=== PATIENT | female | born 1990 | race Asian ===

== ENCOUNTER 2017-01-30 19:28 | Outpatient (CLI) | payer OTHER | END 2017-01-30 20:36 | disposition home or self-care (01) | LOC: MLB 19:28 | PROVIDERS: ATTEND Obstetrics & Gynecology | DX: Z34.90 Encounter for supervision of normal pregnancy, unspecified, unspecified trimester (principal) | CPT/HCPCS: 36415; 84443 ==

== ENCOUNTER 2017-08-28 11:58 | Emergency (ER) | payer OTHER ==
[~2017-08-28] VITALS: Ht 154.9 cm; Wt 67.6 kg
[2017-08-28 12:15] VITALS: BP 117/83
[2017-08-28 13:40] VITALS: BP 117/83
--- NOTE | 2017-08-28 13:41 | NUR ---
Patient discharged with v/s stable. Written and verbal after care instructions given and explained. Patient alert, oriented and verbalized understanding of instructions. Ambulatory with steady gait. All questions addressed prior to discharge. ID band removed. Patient advised to follow up with PMD. Rx of ACYCLOVIR given. Patient educated on indication of medication including possible reaction and side effects. Opportunity to ask questions provided and answered.
== END 2017-08-28 13:41 | disposition home or self-care (01) ==
LOC: MED 11:58
DX: R23.8 Other skin changes (principal)
CPT/HCPCS: 99283

== ENCOUNTER 2018-08-27 07:41 | Emergency (ER) | payer OTHER ==
[~2018-08-27] VITALS: Ht 154.9 cm; Wt 79.4 kg
[2018-08-27 07:48] VITALS: BP 122/72
--- NOTE | 2018-08-27 07:52 | NUR ---
PT. ARRIVED TO THE ED W/ C/O RIGHT EAR PAIN X 1 DAY. COUGH X 1 WEEK, NASAL CONGESTION X 1 WEEK. UPON INSPECTION RIGHT EAR IS DRAINING AND DRIED BLOOD APPARENT IN CANAL. PAIN 8/10 THROBBING PAIN IN RT EAR DENIES FEVERS, N/V/D. C/O DIZZYNESS. LS: CLEAR THROUGHOUT. ER MD MADE AWARE. SAFETY PRECAUTIONS IMPLEMENTED. WILL CONTINUE TO MONITOR.
--- NOTE | 2018-08-27 07:53 | NUR ---
pt ambulated to er bed 11
--- NOTE | 2018-08-27 07:57 | NUR ---
RESIDENT AT BEDSIDE, EVALUATING PATIENT AT THIS TIME.
[2018-08-27 08:28] VITALS: BP 120/70
--- NOTE | 2018-08-27 08:28 | NUR ---
Patient discharged with v/s stable. Written and verbal after care instructions given and explained. Patient alert, oriented and verbalized understanding of instructions. Ambulatory with steady gait. All questions addressed prior to discharge. ID band removed. Patient advised to follow up with PMD 2-3 DAYS . Rx of AMOXICILLIN 500MG given. Patient educated on indication of medication including possible reaction and side effects. Opportunity to ask questions provided and answered.
== END 2018-08-27 08:28 | disposition home or self-care (01) ==
LOC: MED 07:41
DX: H66.91 Otitis media, unspecified, right ear (principal); H72.91 Unspecified perforation of tympanic membrane, right ear; B34.9 Viral infection, unspecified; E03.9 Hypothyroidism, unspecified
CPT/HCPCS: 99283

== ENCOUNTER 2020-04-11 10:46 | Outpatient (CLI) | payer OTHER ==
[2020-04-11 11:35] LABS: BASOPHILS # (AUTO) 0.1 K/uL (0.00-0.22); BASOPHILS % (AUTO) 0.6 % (0.0-2.0); EOSINOPHILS # (AUTO) 0.5 K/uL (0-0.4); EOSINOPHILS % (AUTO) 3.9 % (0.0-4.0); HEMATOCRIT 42.3 % (36-48); HEMOGLOBIN 14.3 g/dL (12.0-16.0); LYMPHOCYTES % (AUTO) 21.8 % (20.5-51.1); MEAN CORPUSCULAR HEMOGLOBIN 27 pg (27-31); MEAN CORPUSCULAR HGB CONC 34 g/dL (33-37); MEAN CORPUSCULAR VOLUME 79.2 fL (80-94); MONOCYTES # (AUTO) 0.6 K/uL (0.8-1.0); MONOCYTES % (AUTO) 4.7 % (1.7-9.3); NEUTROPHILS # (AUTO) 9.4 K/uL (1.8-7.7); PLATELET COUNT (AUTO) 340 K/uL (140-450); RED BLOOD CELL COUNT(AUTO) 5.34 MIL/uL (4.20-5.40); RED CELL DISTRIBUTION WIDTH 13.8 % (11.6-13.7); WHITE BLOOD COUNT (AUTO) 13.6 K/uL (4.8-10.8)
[2020-04-11 11:40] LABS: APPEARANCE,URINE CLEAR (CLEAR); BILIRUBIN,URINE NEGATIVE (NEGATIVE); BLOOD, URINE TRACE-I (NEGATIVE); COLOR,URINE YELLOW (YELLOW); LEUKOCYTE ESTERASE ,URINE NEGATIVE (NEGATIVE); NITRITE, URINE NEGATIVE (NEGATIVE); PH,URINE 5.5 (5.0-9.0); UGLUCOSE NEGATIVE (NEGATIVE)
[2020-04-11 11:44] LABS: RBC,URINE 0-5 /HPF (0-5); WBC,URINE 0-5 /HPF (0-5)
[2020-04-11 13:00] LABS: ALBUMIN 3.9 g/dL (3.4-5.0); ANION GAP 10.5 (8-16); CARBON DIOXIDE 28.8 mmol/L (21-32); CHOL/HDL RATIO 5.6 (1-4.5); CREATININE 0.9 mg/dL (0.6-1.3); POTASSIUM 4.3 mmol/L (3.5-5.1); THYROID STIMULATING HORMONE 1.46 uIU/mL (0.34-3.74); TOTAL BILIRUBIN 0.3 mg/dL (0.0-1.0)
[2020-04-12 08:08] LABS: ESTRADIOL SERUM 64.7 pg/mL (.); FOLLICLE STIMULATING HORMONE 4.6 mIU/mL (.); LUTEINIZING HORMONE 13.2 mIU/mL (.); PROLACTIN 8.5 ng/mL (4.8-23.3); T4 (THYROXINE) 7.9 ug/dL (4.5-12.0)
== END 2020-04-11 20:30 | disposition home or self-care (01) ==
LOC: MLB 10:46
PROVIDERS: ATTEND Preventive Medicine Preventive Medicine/Occupational Environmental Medicine
DX: Z00.01 Encounter for general adult medical examination with abnormal findings (principal); N60.01 Solitary cyst of right breast; N20.0 Calculus of kidney; N63.20 Unspecified lump in the left breast, unspecified quadrant
CPT/HCPCS: 36415; 80053; 81001; 82306; 82670; 83001; 83002; 83036; 84144; 84146; 84436; 84443; 85025

== ENCOUNTER 2020-06-15 16:36 | Emergency (ER) | payer OTHER ==
--- NOTE | 2020-06-15 17:23 | NUR ---
PATIENT LEFT WITHOUT BEING SEEN BY DR. Olmos. NO FURTHER CARE PROVIDED FOR PATIENT.
== END 2020-06-15 17:23 | disposition left against medical advice (07) ==
LOC: MED 16:36
DX: Z53.21 Procedure and treatment not carried out due to patient leaving prior to being seen by health care provider (principal)

== ENCOUNTER 2020-06-16 11:58 | Inpatient (IN) | payer OTHER, SELFPAY ==
[~2020-06-16] VITALS: Ht 154.9 cm; Wt 83.0 kg
[2020-06-16 12:01] VITALS: BP 126/91
--- NOTE | 2020-06-16 12:03 | NUR ---
PT TAKEN TO BED 11.
--- NOTE | 2020-06-16 12:05 | NUR ---
Pt ambulated to ER bed 11 with a steady gait.
--- NOTE | 2020-06-16 12:08 | NUR ---
30 Y/O FEMALE C/O LEFT BREAST ABCESS PAIN 09/30 DESCRIBES BURNING INTERMITTENT WORSE WITH PALPATION X1DAY. PT DENIES FEVER/CHILLS, N/V/D. PT STATES ON 05/25/20 ON SX, 06/[address] BURGOS TO FOLLOW-UP FOR U/S TO R/O A NEW FORMING ABSESS. PMH- HYPOTHYROIDISM RX: METFORMIN, , AND LEVOTHYROXINE. NKA
[2020-06-16] MEDS ORDERED: NACL 0.9% 1,000 ML IV ONE (12:20)
--- NOTE | 2020-06-16 12:27 | NUR ---
Preformed SUZE ZAVALETA, GAVE TO GRANULATING MACHINE OPERATOR.
--- NOTE | 2020-06-16 12:56 | NUR ---
Ultrasound at bedside.
[2020-06-16 13:11] LABS: BASOPHILS % (AUTO) 0.3 % (0.0-2.0); EOSINOPHILS # (AUTO) 0.4 K/uL (0-0.4); EOSINOPHILS % (AUTO) 3.9 % (0.0-4.0); HEMATOCRIT 40.1 % (36-48); HEMOGLOBIN 13.4 g/dL (12.0-16.0); LYMPHOCYTES # (AUTO) 2.8 K/uL (2.5-16.5); LYMPHOCYTES % (AUTO) 26.8 % (20.5-51.1); MEAN CORPUSCULAR HEMOGLOBIN 27 pg (27-31); MEAN CORPUSCULAR HGB CONC 33 g/dL (33-37); MEAN CORPUSCULAR VOLUME 79.5 fL (80-94); MONOCYTES # (AUTO) 0.6 K/uL (0.8-1.0); MONOCYTES % (AUTO) 5.9 % (1.7-9.3); NEUTROPHILS # (AUTO) 6.5 K/uL (1.8-7.7); NEUTROPHILS % (AUTO) 63.1 % (42.2-75.2); PLATELET COUNT (AUTO) 316 K/uL (140-450); RED BLOOD CELL COUNT(AUTO) 5.05 MIL/uL (4.20-5.40); RED CELL DISTRIBUTION WIDTH 14.1 % (11.6-13.7); WHITE BLOOD COUNT (AUTO) 10.4 K/uL (4.8-10.8)
[2020-06-16 13:35] LABS: ALBUMIN 4.1 g/dL (3.4-5.0); ANION GAP 16.3 (8-16); CARBON DIOXIDE 25.5 mmol/L (21-32); CREATININE 0.8 mg/dL (0.6-1.3); POTASSIUM 3.8 mmol/L (3.5-5.1); TOTAL BILIRUBIN 0.3 mg/dL (0.0-1.0)
[2020-06-16] MEDS ORDERED: PIPERACILLIN/TAZOBACTAM 3.375 GM in DEXTROSE 5% 50 ML IV ONE (14:05)
[2020-06-16] MEDS ORDERED: PIPERACILLIN/TAZOBACTAM 3.375 GM VIAL IV ONE (14:14)
--- NOTE | 2020-06-16 14:49 | NUR ---
Pt states her throat feels "itchy". Dr. Munoz made aware.
[2020-06-16] MEDS ORDERED: diphenhydrAMINE 50 MG/ML VIAL IVP ONE (15:00)
--- NOTE | 2020-06-16 16:17 | NUR ---
PT KEPT NPO. LAST ORAL INTAKE WAS AT 1100 THIS AM.
--- NOTE | 2020-06-16 16:40 | NUR ---
Gave report tp Bubba Bird for pending admission in 104B. ETA 10minutes
--- NOTE | 2020-06-16 16:55 | NUR ---
Patient will be admitted to care of Zain Roberts MD. Admited to [facility]. Will go to room 104B. Belongings list completed. Report to Bubba RAHMAN.
[2020-06-16 17:05] VITALS: BP 127/77
--- NOTE | 2020-06-16 17:05 | NUR ---
RECEIVED PATIENT FROM ED NURSE, QUITA VIA WHEELCHAIR. PATIENT AWAKE, ALERT, AND ORIENTED X4. RESP EVEN AND UNLABORED ON ROOM AIR. C/O PAIN TO LEFT BREAST 3/10 AND TOLERABLE, NOT REQUESTING ANY PAIN MEDICATION. DX. LEFT BREAST ABSCESS. PATIENT HAD A RECENT I/D TO LEFT BREAST ABSCESS AT THE BEGINNING OF MAY [address] BURGOS. OPEN WOUND ON LEFT MEDIAL BREAST PACKED AND COVERED WITH ISLAND DRESSING. LUNGS CLEAR. SKIN DRY AND WARM TO TOUCH AND INTACT. BOWEL SOUNDS PRESENT IN ALL QUADRANTS. PATIENT ABLE TO AMBULATE WITH STEADY GAIT. RH 20G INTACT AND PATENT WITH NS 100ML/HR. MRSA COLLECTED AND SENT TO LAB. PATIENT ABLE TO MAKE NEEDS KNOWN AND FOLLOW COMMANDS. HOME MEDICATIONS IN TELE MED ROOM IN PATIENT CASETTE. CALL LIGHT WITHIN REACH. WILL CONTINUE TO MONITOR.
[2020-06-16] MEDS ORDERED: HYDROcodone/APAP 5/325 MG 1 TAB TAB PO PRN (17:20)
[2020-06-16] MEDS ORDERED: ONDANSETRON 4 MG/2 ML VIAL IVP PRN ×2 (17:20→23:45)
[2020-06-16] MEDS ORDERED: ACETAMINOPHEN 325 MG TAB PO PRN (17:20)
[2020-06-16] MEDS ORDERED: LORazepam 2 MG/ML VIAL IVP PRN (17:20)
[2020-06-16] MEDS: DEXT 5% / NACL 0.45% 1,000 ML IV SCH (19:26)
--- NOTE | 2020-06-16 19:30 | NUR ---
PATIENT IS NPO AT THIS TIME. PATIENT VERBALIZED UNDERSTANDING. ENDORSED PATIENT TO NIGHT NURSE. PATIENT IN STABLE CONDITION.
--- NOTE | 2020-06-16 19:30 | NUR ---
REVIEWED PLAN OF CARE WITH SAGAR URBANO AND BOTH AGREED. RECEIVED PT A/A/OX4, LAYING IN BED WATCHING TV. NOT IN ANY DISTRESS AND NO COMPLAIN AT THIS TIME.IVF INFUSING ORDERED.CALL LIGHT WITHIN REACH. WILL CONTINUE POC AND MONITORING.
--- NOTE | 2020-06-16 19:30 | NUR ---
RECD. RESTING IN BED, AWAKE, A/OX4. IV OF D5 0.45 NS INFUSING AT 100 ML/HR, RIGHT HAND G 20. ABLE TO AMBULATE BY HERSELF. PLEASANT AND COOPERATIVE. DENIES PAIN 0/10 AT THIS TIME. NPO,
[2020-06-16 20:00] VITALS: BP 102/68
[2020-06-16] MEDS: PIPERACILLIN/TAZOBACTAM 3.375 GM in DEXTROSE 5% 50 ML IV SCH (20:40)
--- NOTE | 2020-06-16 22:10 | NUR ---
DR. BURGOS CALLED, WILL DO I & D OF LEFT BREAST TONIGHT.
--- NOTE | 2020-06-16 22:45 | NUR ---
TAKEN TO OR VIA BED FOR I & D OF LEFT BREAST.
[2020-06-16] MEDS ORDERED: BUPIVACAINE-MPF 0.25% 30 ML VIAL INJ ONE (23:03)
[2020-06-16] MEDS ORDERED: LIDOCAINE 1% 500 MG/50 ML VIAL ONE (23:03)
[2020-06-16] MEDS ORDERED: DEXAMETHASONE 4 MG/ML VIAL ONE (23:05)
[2020-06-16] MEDS ORDERED: MEPERIDINE 25 MG/ML SYR ONE (23:05)
[2020-06-16] MEDS ORDERED: ONDANSETRON 4 MG/2 ML VIAL ONE (23:05)
[2020-06-16] MEDS ORDERED: KETOROLAC 30 MG/ML VIAL ONE (23:05)
[2020-06-16] MEDS ORDERED: SEVOFLURANE 250 ML BTL INH ONE (23:05)
[2020-06-16] MEDS ORDERED: fentaNYL citrate 0.05 MG/ML VIAL ONE (23:05)
[2020-06-16] MEDS ORDERED: MIDAZOLAM 2 MG/2 ML VIAL ONE (23:05)
[2020-06-16] MEDS ORDERED: PROPOFOL 200 MG/20 ML VIAL IV ONE (23:05)
[2020-06-16] MEDS ORDERED: BLOOD GLUCOSE MONITORING 1 DEV DEV FS SCH (23:45)
[2020-06-16] MEDS ORDERED: HYDROmorphone 1 MG/ML AMP IVP PRN (23:45)
[2020-06-16] MEDS ORDERED: MEPERIDINE 25 MG/ML SYR IVP PRN (23:45)
[2020-06-16] MEDS ORDERED: diphenhydrAMINE 50 MG/ML VIAL IVP PRN (23:45)
[2020-06-16] MEDS: NACL 0.9% 1,000 ML IV SCH (23:45)
[2020-06-17] MEDS ORDERED: ACETAMINOPHEN 325 MG TAB PO PRN (00:10)
[2020-06-17] MEDS ORDERED: MORPHINE SULFATE 2 MG/ML SYR IVP PRN (00:10)
[2020-06-17] MEDS ORDERED: MORPHINE SULFATE 4 MG/ML SYR IV PRN (00:10)
[2020-06-17 00:40] VITALS: BP 104/70
--- NOTE | 2020-06-17 00:40 | NUR ---
RECD. FROM OR VIA BED, ACCOMPANIED BY OR NURSES, S/P I & D OF LEFT BREAST. AWAKE, A/OX4.RESPIRATION EVEN AND UNLABORED. INCISION IN THE LEFT BREAST COVERED WITH GAZE DRESSING DRY AND INTACT. CONNECTED BACK TO IV OF D5 0.45 NS AT 100 ML/HR. NS STABLE. DENIES PAIN AT THIS TIME, 010.
--- NOTE | 2020-06-17 01:15 | NUR ---
TOLERATED BROTH AND TUNA SANDWICH. NO N/V NOTED.
[2020-06-17] MEDS: DEXT 5% / NACL 0.45% 1,000 ML IV SCH ×3 (01:28→13:20)
--- NOTE | 2020-06-17 02:30 | NUR ---
SLEEPING COMFORTABLY IN BED.
--- NOTE | 2020-06-17 04:00 | NUR ---
ON HER LEFT SIDE, COMFORTABLY SLEEPING.
[2020-06-17] MEDS: ONDANSETRON 4 MG/2 ML VIAL IV PRN (04:48)
--- NOTE | 2020-06-17 04:48 | NUR ---
NAUSEATED, MEDICATED WITH ZOFRAN 4 MG.IVP BY CATHERINE TORRES RN.
[2020-06-17] MEDS: PIPERACILLIN/TAZOBACTAM 3.375 GM in DEXTROSE 5% 50 ML IV SCH ×3 (04:49→21:11)
--- NOTE | 2020-06-17 05:50 | NUR ---
NO NAUSEA, VOIDED ONCE MODERATE AMOUNT OF CLEAR YELLOW URINE.
--- NOTE | 2020-06-17 07:00 | NUR ---
CONDITION REMAIN STABLE. WILL ENDORSE TO AM SHIFT NURSE FOR CONTINUITY OF CARE.
--- NOTE | 2020-06-17 07:30 | NUR ---
RECEIVED PT AAOX4. NO SOB NOTED. NO C/O PAIN AT THIS TIME. INSTRUCTED PT TO CALL FOR ASSISTANCE, CALL LIGHT WITHIN REACH, PT VERBALIZED UNDERSTANDING.
[2020-06-17 08:00] VITALS: BP 111/65
[2020-06-17 08:02] LABS: ALBUMIN 3.6 g/dL (3.4-5.0); ANION GAP 14.4 (8-16); POTASSIUM 4.4 mmol/L (3.5-5.1); TOTAL BILIRUBIN 0.3 mg/dL (0.0-1.0)
[2020-06-17 08:06] LABS: BASOPHILS % (AUTO) 0.3 % (0.0-2.0); EOSINOPHILS # (AUTO) 0.1 K/uL (0-0.4); EOSINOPHILS % (AUTO) 0.5 % (0.0-4.0); HEMATOCRIT 38.9 % (36-48); HEMOGLOBIN 12.9 g/dL (12.0-16.0); LYMPHOCYTES # (AUTO) 1.9 K/uL (2.5-16.5); LYMPHOCYTES % (AUTO) 16.8 % (20.5-51.1); MEAN CORPUSCULAR HEMOGLOBIN 26 pg (27-31); MEAN CORPUSCULAR HGB CONC 33 g/dL (33-37); MEAN CORPUSCULAR VOLUME 79.7 fL (80-94); MONOCYTES # (AUTO) 0.2 K/uL (0.8-1.0); MONOCYTES % (AUTO) 1.9 % (1.7-9.3); NEUTROPHILS # (AUTO) 8.9 K/uL (1.8-7.7); NEUTROPHILS % (AUTO) 80.5 % (42.2-75.2); PLATELET COUNT (AUTO) 293 K/uL (140-450); RED BLOOD CELL COUNT(AUTO) 4.88 MIL/uL (4.20-5.40); RED CELL DISTRIBUTION WIDTH 13.9 % (11.6-13.7)
--- NOTE | 2020-06-17 08:57 | NUR ---
PATIENT HAS BEEN SCREENED AND CATEGORIZED LOW NUTRITION RISK. PATIENT WILL BE SEEN WITHIN 7 DAYS OF ADMISSION. 06/23/[address]
--- NOTE | 2020-06-17 09:14 | NUR ---
FNS CONSULT RECEIVED FOR WOUNDS/PRESSURE ULCERS NOT APPROPRIATE FOR ABSCESS.
--- NOTE | 2020-06-17 11:20 | NUR ---
SPOKE WITH June HAMILTON STATED THAT HE IS NOT DISCHARGING PT TODAY UNTIL WOUND CULTURE RESULT IS IN. PT MADE AWARE.
--- NOTE | 2020-06-17 12:22 | NUR ---
SOCIAL WORK NOTE: Patient's Orientation Person Situation Place Time Information Provided By PATIENT Comments SW WAS UNABLE TO MEET PATIENT AT BEDSIDE. SW COMPLETED ASSESSMENT WITH PATIENT TELEPHONICALLY. Flat Knitter, Realtionship and Phone Number MAURICE CARVALHO [phone] Healthcare Power of Auto Clutch Rebuilder No Does Patient Have a POLST No Identifying Problems No Social Work Triggers Is A Social Work Consult Needed No Mandate Report Filed No Explanation Of Identifying Problems PATIENT IS A 30-YEAR-OLD FEMALE ADMITTED FOR LEFT BREAST ABSCESS. PATIENT HAS PMHX OF BREAST ABSCESS. PATIENT REPORTED NO HISTORY OF SUBSTANCE ABUSE OR MENTAL HEALTH. Admitted From Home Pre-Admission Level Of Functioning Status Independent/Ambulatory Prior Resources/Services Used In Last 12 Months No Prior Resources Used Prior DME No Prior DME Used Dialysis Comments N/A Living Situation Apartment Lives With Family Patient Had Caregiver No Home Support No Caregiver Issues Financial Issues No Known Financial Issue Referral To The Financial Counselor Needed No Factors/Needs No D/C Needs Identified Pt/Rep Participated In Discharge Plan Yes Patient/Family Agress With Discharge Plan Yes Discharge Plan Comments TENTATIVE DISCHARGE PLAN IS FOR PATIENT TO RETURN HOME. DC Plan Status Initiated
--- NOTE | 2020-06-17 12:41 | NUR ---
DC PLANNIN YRS OLD FEMALE PATIENT WAS ADMITTED FROM HOME WITH A DX OF LEFT BREAST ABSCESS . PT HAS NO MEDICAL HISTORY. BREAST ULTRASOUND SHOWED ABSCESS . DR BURGOS PERFORMED I&D PACKED WITH IODOFORM AND COVERED BY 4X4 . DC PLAN TO GO HOME WITH [employer]. CM TO FOLLOW Addendum: 06/17/20 at 1356 by Jersey CEBALLOS NENA CONTACTED LEONARDA FROM [facility] REGARDING CONTINUING SERVICES [phone]. LEONARDA REQUESTED CLINICALS BE SENT TO [phone]. NENA FAXED CLINICALS AND LEONARDA STATED HE WOULD GET IN CONTACT WITH PATIENT. NO FURTHER NEEDS IDENTIFIED. Addendum: 06/17/20 at 9731 by Ambar Montiel RN DC PLANNING: CALLED DR GOFF DISCUSSED DC PLAN FOR PT AND NOTIFIED HIM PT IS WITH [facility] AND CAN CONTINUE WITH THE CARE. PER DR RAUSCH TO CHECK THE WBC TOMORROW. POSSIBLE DC TOMORROW CM TO FOLLOW Addendum: 06/19/20 at 1458 by Ambar Montiel RN DC PLANNING: PER DR GOFF DC PLAN AWAITING FOR FINAL WOUND CULTURE RESULT. PT AGREED TO CONTINUE WITH [facility] FOR WOUND CARE. CM TO FOLLOW
--- NOTE | 2020-06-17 13:20 | NUR ---
WOUND CARE NOTE: PT IS AAX4, PER PT. LEFT BREAST UPPER CUT (1X4 CM) WAS DONE ON 05/25/2020 AND LOWER CUT (1X4.5CM) IS FROM THIS TIME. S/P I&D LEFT BREAST MIDNIGHT 06/16/2020 BOTH SITE DRESSING SOILING, OUTER SOILING DRESSING REMOVED AND APPLY DRY CLEAN DRESSING, REINFORCE DRESSING, PACKING REMAINS AT BOTH SITES,TOO EARLY TO REMOVE THE PACKING DRESSING. EXPLAIN TO PT. PACKING TO BE REMOVED 24-48 HOURS AFTER SURGERY, THE FIRST DRESSING CHANGE WILL BE TOMORROW. PT. VERBALIZES UNDERSTANDING. POC AND WOUND CARE INSTRUCTIONS DISCUSSED WITH PT. AND PRINCIPAL ASSOCIATE. PT. VERBALIZES UNDERSTANDING.PER PRINCIPAL ASSOCIATE WILL CONTINUE SAME HOME HEALTH TO FOLLOW WOUND CARE. RECOMMENDATIONS -CLEANSE 2 SURGICAL SITES TO LEFT BREAST WITH NS. PAT DRY, PACK WITH OIL EMULSION DRESSING, COVER WITH DRY DRESSING QD AND PRN IF SOILING
[2020-06-17] MEDS: NACL 0.9% 1,000 ML IV SCH (13:31)
[2020-06-17] MEDS: HYDROcodone/APAP 5/325 MG 1 TAB TAB PO PRN (13:53)
[2020-06-17 16:00] VITALS: BP 106/60
--- NOTE | 2020-06-17 19:00 | NUR ---
PT RESTING. NO SOB NOTED. NO COMPLAINTS MADE. WILL ENDORSE TO NEXT SHIFT NURSE FOR CONTINUITY OF CARE.
--- NOTE | 2020-06-17 19:10 | NUR ---
RECD RESTING IN BED, AWAKE, A/OX4. RESPIRATION EVEN AND UNLABORED. IV OF NS AT TKO INFUSING AT 10 ML/HR, RIGHT HAND G20. INCISION IN THE LEFT BREAST COVERED WITH DRESSING DRY AND INTACT. TOLERATING DIET, AMBULATING TO THE BR. ON IV ANTIBIOTICS. PAIN IN THE LEFT BREAST 08/02, TOLERABLE. WANTS PAIN MEDICATION GIVEN WITH THE ANTIBIOTICS. STARTED DISCHARGE TEACHINGS. VERBALIZED UNDERSTANDING.
--- NOTE | 2020-06-17 21:00 | NUR ---
CHECKED PATIENT, LYING ON HER RIGHT SIDE, STILL SLEEPING COMFORTABLY. DR WATERMAN IS HERE, WILL FOLLOW UP WITH ANY NEW ORDER.
--- NOTE | 2020-06-17 21:20 | NUR ---
REVIEWED PLAN OF CARE WITH SAGAR URBANO AND BOTH AGREED. RECEIVED PT A/A/OX4, LAYING IN BED WATCHING TV. NOT IN ANY DISTRESS, PT COMPLAINING OF LEFT BREAST PAIN, PRN MORPHINE GIVEN ORDERED. OTHERWISE NO OTHER COMPLAIN.IVF INFUSING ORDERED.CALL LIGHT WITHIN REACH. WILL CONTINUE POC AND MONITORING.
--- NOTE | 2020-06-18 | NUR ---
SLEEPING COMFORTABLY IN BED.
[2020-06-18 00:05] VITALS: BP 95/63
--- NOTE | 2020-06-18 03:30 | NUR ---
REQUESTED FOR HOT WATER, STATED MY THROAT HURTS. ABLE TO PASSED GAS ALREADY BUT NO BM YET. ENCOURAGED TO AMBULATE MORE.
--- NOTE | 2020-06-18 04:48 | NUR ---
NAUSEATED, MEDICATED WITH ZOFRAN IVP BY CATHERINE TORRES RN PER MD ORDER.
[2020-06-18] MEDS: PIPERACILLIN/TAZOBACTAM 3.375 GM in DEXTROSE 5% 50 ML IV SCH ×3 (05:12→20:33)
--- NOTE | 2020-06-18 05:48 | NUR ---
NO NAUSEA NOTED, RESTING COMFORTABLY IN BED.
[2020-06-18 06:59] LABS: BASOPHILS % (AUTO) 0.3 % (0.0-2.0); EOSINOPHILS # (AUTO) 0.2 K/uL (0-0.4); EOSINOPHILS % (AUTO) 1.2 % (0.0-4.0); HEMATOCRIT 36.6 % (36-48); HEMOGLOBIN 11.8 g/dL (12.0-16.0); LYMPHOCYTES # (AUTO) 3.6 K/uL (2.5-16.5); LYMPHOCYTES % (AUTO) 26.9 % (20.5-51.1); MEAN CORPUSCULAR HEMOGLOBIN 26 pg (27-31); MEAN CORPUSCULAR HGB CONC 32 g/dL (33-37); MEAN CORPUSCULAR VOLUME 79.9 fL (80-94); MONOCYTES % (AUTO) 7.2 % (1.7-9.3); NEUTROPHILS # (AUTO) 8.6 K/uL (1.8-7.7); NEUTROPHILS % (AUTO) 64.4 % (42.2-75.2); PLATELET COUNT (AUTO) 263 K/uL (140-450); RED BLOOD CELL COUNT(AUTO) 4.58 MIL/uL (4.20-5.40); RED CELL DISTRIBUTION WIDTH 14.2 % (11.6-13.7); WHITE BLOOD COUNT (AUTO) 13.4 K/uL (4.8-10.8)
--- NOTE | 2020-06-18 07:00 | NUR ---
ABLE TO SLEEP WELL. CONDITION REMAIN STABLE. WILL ENDORSE TO AM SHIFT NURSE FOR CONTINUITY OF CARE.
--- NOTE | 2020-06-18 07:02 | NUR ---
RECEIVED REPORT FROM NIGHT NURSE PATIENT IS SLEEPING, AMBULATORY, ON ROOM AIR, S/P LEFT BREAST ABSCESS I&D May. IV SITES INTACT AND PATENT ON RIGHT HAND. SAFETY MEASURES IN PLACE CALL LIGHT WITHIN REACH WILL CONTINUE TO MONITOR.
[2020-06-18 07:21] LABS: ANION GAP 11.1 (8-16); CREATININE 0.8 mg/dL (0.6-1.3); POTASSIUM 4.1 mmol/L (3.5-5.1)
[2020-06-18 08:00] VITALS: BP 110/62
[2020-06-18] MEDS: HYDROcodone/APAP 5/325 MG 1 TAB TAB PO PRN (08:48)
--- NOTE | 2020-06-18 08:50 | NUR ---
PATIENT COMPLAIN OF PAIN ON THE LEFT BREAST 6/10 PAIN MEDICATIONS GIVEN CHECK VITAL SIGNS PRIOR TO MEDICATION BP 110/62 SD 75. SAFETY MEASURES IN PLACE AND CALL LIGHT WITHIN REACH. WILL CONTINUE TO MONITOR.
--- NOTE | 2020-06-18 12:24 | NUR ---
MEDICATION DUE GIVEN NO DISTRESS NOTED.
--- NOTE | 2020-06-18 13:45 | NUR ---
PAIN MEDICATION GIVEN TO PATIENT PRIOR TO DRESSING CHANGED. CLEANED LEFT BREAST WITH NORMAL SALINE PAT DRY WITH GAUZE AND CHANGED PACKING, COVERED WITH ISLAND DRESSING.
[2020-06-18] MEDS: GAUZE TP SCH (13:52)
[2020-06-18 16:00] VITALS: BP 120/87
--- NOTE | 2020-06-18 16:00 | NUR ---
PATIENT STARTED VOMITING AND NAUSEATED GAVE HER A BACK RUB AND ENCOURAGED TO DRINK WATER. PATIENT FEELS BETTER.
--- NOTE | 2020-06-18 17:30 | NUR ---
GAVE ZOFRAN FOR NAUSEA AND VOMITING.
[2020-06-18] MEDS: ONDANSETRON 4 MG/2 ML VIAL IV PRN (17:51)
--- NOTE | 2020-06-18 19:10 | NUR ---
ENDORSED TO NIGHT NURSE FOR CONTINUITY OF CARE. PT IS STABLE.
--- NOTE | 2020-06-18 19:11 | NUR ---
RECEIVED REPORT FROM EDUARDO FIELDS RN, PT AOX4 ON ROOM AIR. IV SITE R HAND 22G, PATENT AND INTACT. NO S/S RESPIRATORY DISTRESS. NO C/O PAIN AT THIS TIME. S/P I&D LEFT BREAST ABSCESS ON JUN 16, 2020. SAFETY MEASURES IN PLACE. CALL LIGHT WITHIN REACH. WILL CONTINUE TO MONITOR.
[2020-06-18 20:00] VITALS: BP 109/66
--- NOTE | 2020-06-18 20:35 | NUR ---
ADMINISTERED SCHEDULED ME. PT TOLERATED WELL. WILL CONTINUE TO MONITOR Addendum: 06/19/20 at 0225 by Dee Arora RN ADMINISTERED SCHEDULED MEDICATION
--- NOTE | 2020-06-18 22:30 | NUR ---
PT AWAKE IN BED, EATING. NO DISTRESS NOTED. WILL CONTINUE TO MONITOR
--- NOTE | 2020-06-19 00:20 | NUR ---
PT ASLEEP IN BED. RESPIRATIONS EVEN AND UNLABORED. NO DISTRESS NOTED. WILL CONTINUE TO MONITOR
--- NOTE | 2020-06-19 02:27 | NUR ---
PT SLEEPING COMFORTABLY IN BED. NO DISTRESS NOTED. WILL CONTINUE TO MONITOR
[2020-06-19 04:00] VITALS: BP 104/59
[2020-06-19] MEDS: PIPERACILLIN/TAZOBACTAM 3.375 GM in DEXTROSE 5% 50 ML IV SCH ×3 (04:46→21:22)
[2020-06-19 06:20] LABS: BASOPHILS % (AUTO) 0.4 % (0.0-2.0); EOSINOPHILS # (AUTO) 0.5 K/uL (0-0.4); EOSINOPHILS % (AUTO) 3.9 % (0.0-4.0); HEMATOCRIT 34.7 % (36-48); HEMOGLOBIN 11.6 g/dL (12.0-16.0); LYMPHOCYTES # (AUTO) 3.4 K/uL (2.5-16.5); LYMPHOCYTES % (AUTO) 28.3 % (20.5-51.1); MEAN CORPUSCULAR HEMOGLOBIN 27 pg (27-31); MEAN CORPUSCULAR HGB CONC 33 g/dL (33-37); MEAN CORPUSCULAR VOLUME 79.3 fL (80-94); MONOCYTES # (AUTO) 0.7 K/uL (0.8-1.0); NEUTROPHILS # (AUTO) 7.3 K/uL (1.8-7.7); NEUTROPHILS % (AUTO) 61.4 % (42.2-75.2); PLATELET COUNT (AUTO) 249 K/uL (140-450); RED BLOOD CELL COUNT(AUTO) 4.37 MIL/uL (4.20-5.40); RED CELL DISTRIBUTION WIDTH 14.2 % (11.6-13.7)
--- NOTE | 2020-06-19 07:05 | NUR ---
ENDORSED PT TO DAY RN FOR CONTINUITY OF CARE. PT IS IN STABLE CONDITION
--- NOTE | 2020-06-19 07:10 | NUR ---
RECEIVED REPORT FROM NIGHT NURSE FOR CONTINUITY OF CARE, PT IS ASLEEP, AAOX4, PT IS STABLE, NO SIGNS OF DISTRESS NOTED, RESPIRATIONS ARE EVEN AND UNLABORED ON ROOM AIR, PT HAS RIGHT HAND 20G SALINE LOCK, PT HAS LEFT BREAST WOUND WITH DRESSING, SAFETY MEASURES IN PLACE, WILL CONTINUE TO MONITOR.
[2020-06-19 07:24] LABS: ANION GAP 11.2 (8-16); CARBON DIOXIDE 26.9 mmol/L (21-32); CREATININE 0.9 mg/dL (0.6-1.3); POTASSIUM 4.1 mmol/L (3.5-5.1)
[2020-06-19 08:00] VITALS: BP 118/77
--- NOTE | 2020-06-19 09:00 | NUR ---
PT IS SITTING IN BED ON CELL PHONE, PT IS STABLE, NO SIGNS OF DISTRESS NOTED, RESPIRATIONS ARE EVEN AND UNLABORED ON ROOM AIR, CALL LIGHT WITH IN REACH, WILL CONTINUE TO MONITOR.
--- NOTE | 2020-06-19 11:30 | NUR ---
PT RESTING IN BED, NO SIGNS OF DISTRESS NOTED, PT IS STABLE, WILL CONTINUE TO MONITOR.
[2020-06-19] MEDS: HYDROmorphone 1 MG/ML AMP IVP PRN (14:20)
[2020-06-19] MEDS: GAUZE TP SCH (14:21)
--- NOTE | 2020-06-19 14:27 | NUR ---
ADMINISTERED SCHEDULED MEDICATION, DILAUDID PRE-MEDICATION FOR LEFT BREAST PAIN WHEN CHANGING DRESSING, MEDICATION EDUCATION PROVIDED, PT VERBALIZED UNDERSTANDING, PT TOLERATED WELL,PT IS STABLE, WILL CONTINUE TO MONITOR.
[2020-06-19 16:00] VITALS: BP 104/64
[2020-06-19] MEDS: metFORMIN 500 MG TAB PO SCH (17:00)
--- NOTE | 2020-06-19 17:09 | NUR ---
PT IS STABLE, RESTING IN BED, NO SIGNS OF DISTRESS NOTED, CALL LIGHT WITHIN REACH, WILL CONTINUE TO MONITOR.
--- NOTE | 2020-06-19 19:15 | NUR ---
ENDORSE PT TO NIGHT NURSE FOR CONTINUITY OF CARE, PT IS STABLE
[2020-06-19 20:00] VITALS: BP 115/67
--- NOTE | 2020-06-19 20:00 | NUR ---
RECEIVED REPORT FROM DAY SHIFT RN. PT IS A&O X4. SR/ST. S1S2 NOTED. AFEBRILE/. PT HAS PERIPHERAL IV TO RT FA 24g PATENT NO INFILTRATION/PHLEBITIS NOTED, RUNNING: D5 1/2 NS @ 20 ML/HR. BS ACTIVE IN ALL 4 QUADRANTS, G-TUBE TO LT UPPER QUADRANT. CONFIRMED PLACEMENT. G-TUBE TO FEED: GLUCERNA 1.2 AT 50ML/HR. FWF: 100ML Q4HR. RESIDUAL: 15 ML. PT IS INCONTINENT. PT HAS SACRAL Addendum: 06/19/20 at 2318 by Isaura Ballesteros RN RN WRONG PATIENT AND WRONG ENTRY.
--- NOTE | 2020-06-19 20:00 | NUR ---
RECEIVED REPORT FROM DAY SHIFT RN. A&O X4. SR/. S1S2 NOTED. PT HAS PERIPHERAL IV TO LT HAND 22g PATENT NO INFILTRATION/PHLEBITIS NOTED, SALINE LOCK. LUNGS CLEAR UPON AUSCULTATION. BS ACTIVE IN ALL 4 QUADRANTS. SKIN WARM, DRY AND INTACT. SAFETY MEASURES IN PLACE, BED LOW AND LOCKED, SIDE RAILS UP, CALL LIGHT WITHIN REACH. WILL CONTINUE TO MONITOR.
--- NOTE | 2020-06-19 22:00 | NUR ---
PT IS RESTING IN BED, PT STATES NO PAIN AT THIS TIME, WILL CONTINUE TO MONITOR.
--- NOTE | 2020-06-20 | NUR ---
PT IS SLEEPING. NO S/S OF DISTRESS NOTED. SAFETY MEASURES IN PLACE, WILL CONTINUE TO MONITOR. CALL LIGHT WITHIN REACH.
--- NOTE | 2020-06-20 02:00 | NUR ---
PT IS SLEEPING, NO S/S OF DISTRESS NOTED, WILL CONTINUE TO MONITOR.
[2020-06-20 04:00] VITALS: BP 100/66
--- NOTE | 2020-06-20 04:00 | NUR ---
PT IS RESTING IN BED, PT STATES NO PAIN AT THIS TIME, WILL CONTINUE TO MONITOR.
[2020-06-20] MEDS: PIPERACILLIN/TAZOBACTAM 3.375 GM in DEXTROSE 5% 50 ML IV SCH ×3 (05:33→20:33)
--- NOTE | 2020-06-20 06:00 | NUR ---
PT IS SLEEPING, PT IS STABLE WITH NO APPARENT S/S OF DISTRESS NOTED. SAFETY MEASURES IN PLACE, BED LOW AND LOCKED, HOB AT 30 DEGREES, CALL LIGHT WITHIN REACH. WILL CONTINUE TO MONITOR.
[2020-06-20] MEDS: LEVOTHYROXINE 0.05 MG TAB PO SCH (06:30)
[2020-06-20 06:48] LABS: ANION GAP 12.3 (8-16); CARBON DIOXIDE 25.9 mmol/L (21-32); CREATININE 0.9 mg/dL (0.6-1.3); POTASSIUM 4.2 mmol/L (3.5-5.1)
[2020-06-20 06:51] LABS: BASOPHILS # (AUTO) 0.1 K/uL (0.00-0.22); BASOPHILS % (AUTO) 0.5 % (0.0-2.0); EOSINOPHILS # (AUTO) 0.6 K/uL (0-0.4); EOSINOPHILS % (AUTO) 4.6 % (0.0-4.0); HEMATOCRIT 34.6 % (36-48); HEMOGLOBIN 11.5 g/dL (12.0-16.0); LYMPHOCYTES # (AUTO) 3.3 K/uL (2.5-16.5); LYMPHOCYTES % (AUTO) 23.6 % (20.5-51.1); MEAN CORPUSCULAR HEMOGLOBIN 27 pg (27-31); MEAN CORPUSCULAR HGB CONC 33 g/dL (33-37); MEAN CORPUSCULAR VOLUME 79.9 fL (80-94); MONOCYTES # (AUTO) 1.1 K/uL (0.8-1.0); MONOCYTES % (AUTO) 7.8 % (1.7-9.3); NEUTROPHILS # (AUTO) 8.9 K/uL (1.8-7.7); NEUTROPHILS % (AUTO) 63.5 % (42.2-75.2); PLATELET COUNT (AUTO) 268 K/uL (140-450); RED BLOOD CELL COUNT(AUTO) 4.33 MIL/uL (4.20-5.40)
--- NOTE | 2020-06-20 07:20 | NUR ---
RECEIVED REPORT FROM POWER PLANT SUPERVISOR RN FOR CONTINUITY OF CARE. A&O X4. PT HAS PERIPHERAL IV TO LT HAND 22g PATENT NO INFILTRATION/PHLEBITIS NOTED, SALINE LOCK. LUNGS CLEAR UPON AUSCULTATION. BS ACTIVE IN ALL 4 QUADRANTS. SKIN WARM, DRY AND INTACT. SAFETY MEASURES IN PLACE, BED IN LOW POSITION, SIDE RAILS UP, CALL LIGHT WITHIN REACH. WILL CONTINUE TO MONITOR.
[2020-06-20] MEDS: metFORMIN 500 MG TAB PO SCH ×2 (08:00→17:00)
[2020-06-20] MEDS: MULTIVIT/MIN/CA/FE/FA 1 TAB PO SCH (08:19)
--- NOTE | 2020-06-20 08:19 | NUR ---
SCHEDULED MORNING MEDICATION GIVEN. PATIENT REFUSED METFORMIN. PER PATIENT. SHE DOES NOT HAVE DIABETES. SHE TOOK METFORMIN FOR REGULATE HER PERIOD. METFORMIN MAKE HER FEEL DIZZINESS RECENTLY. NO ACUTE DISTRESS NOTED AT THIS TIME. SAFETY MEASURES IN PLACE, CALL LIGHT WITHIN REACH. WILL CONTINUE TO MONITOR.
--- NOTE | 2020-06-20 11:25 | NUR ---
PATIENT RESTING IN BED, NO ACUTE DISTRESS NOTED. WILL CONTINUE TO MONITOR.
[2020-06-20] MEDS: HYDROmorphone 1 MG/ML AMP IVP PRN (13:33)
--- NOTE | 2020-06-20 13:33 | NUR ---
IV ZOSYN GIVEN VIA IVPB, EDUCATION PROVIDED. DILAUDID GIVEN VIA IVP FOR LEFT BREAST PAIN 01/30. PATIENT TOLERATED WELL. SAFETY MEASURES IN PLACE. CALL LIGHT WITHIN REACH. WILL CONTINUE TO MONITOR.
[2020-06-20] MEDS: GAUZE TP SCH (13:41)
[2020-06-20 16:00] VITALS: BP 126/83
--- NOTE | 2020-06-20 17:07 | NUR ---
PATIENT RESTING IN BED WITH SUPINE POSITION. MILD PAIN AT LEFT BREAST, BUT TOLERABLE WITHOUT PAIN MED. INFORMED PATIENT REGARDING NON PHARMACOLOGICAL PAIN MANAGEMENT AND RELAXATION TECHNIQUE. SAFETY MEASURES IN PLACE, CALL LIGHT WITHIN REACH. WILL CONTINUE TO MONITOR.
--- NOTE | 2020-06-20 19:38 | NUR ---
ENDORSED PATIENT TO WINE STEWARD RN FOR CONTINUITY OF CARE. PATIENT IN STABLE CONDITION.
--- NOTE | 2020-06-20 19:40 | NUR ---
RECEIVED REPORT FROM DAYSDEFT NURSE. PT ANOx4, MAKES NEEDS KNOWN. ON ROOM AIR. DENIES PAIN. PT HAS LEFT HAND 22G, FLUSHED, ASYMPTOMATIC, SALINE LOCKED. LEFT BREAST HAS DRESSING, DRY AND INTACT. NO SIGNS OF INFECTION. PT ABLE TO AMBULATE TO RESTROOM. NO COMPLAINTS AT THIS TIME. DISCUSSED PLAN OF CARE WITH PT, VERBALIZED UNDERSTANDING, BED LOCKED AND IN LOWEST POSITION. CALL LIGHT WITHIN REACH. WILL CONTINUE TO MONITOR.
--- NOTE | 2020-06-20 21:10 | NUR ---
FLUSHED IV SITE, INTACT, SCHEDULED ANTIBIOTICS GIVEN. NO ADVERSE REACTION NOTED. PT STANDING BY BEDSIDE TO STRETCH AND WALK AROUND. CHANGED LINEN AND PROVIDED HOT WATER. PT IN STABLE CONDITION.
--- NOTE | 2020-06-20 23:10 | NUR ---
PT ABLE TO SELF TURN IN BED. DENIES PAIN AT THIS TIME, ASKING TO CLOSE THE DOOR. ALL NEEDS MET AT THIS TIME.
[2020-06-21] VITALS: BP 119/77
--- NOTE | 2020-06-21 00:43 | NUR ---
ALL VITALS WITHIN RANGE. PT SLEEPING COMFORTABLY.FLACC 0. WILL CONTINUE TO MONITOR.
--- NOTE | 2020-06-21 02:10 | NUR ---
PT SLEEPING, NO SIGNS OF DISTRESS. VISIBLE CHEST RISE AND FALL, ON ROOM AIR. SELF TURNS. SAFETY MEASURES IN PLACE.
[2020-06-21 04:00] VITALS: BP 113/71
--- NOTE | 2020-06-21 04:10 | NUR ---
ASSESSED FOR ANY EXCESS SOILING OR DRAINAGE AT LEFT BREAST SURGICAL INCISION SITE. PT REPORTS FEELING FINE AND NOT WET. PT REPORTS WILL CHECK DRESSING WHEN SHE HAS A SPONGE BATH LATER. NO COMPLAINTS AT THIS TIME. PT RESTING COMFORTABLY, PT INDEPENDENT OF ADL's WILL HAVE SPONGE BATH LATER.
[2020-06-21] MEDS: PIPERACILLIN/TAZOBACTAM 3.375 GM in DEXTROSE 5% 50 ML IV SCH (04:15)
[2020-06-21] MEDS: LEVOTHYROXINE 0.05 MG TAB PO SCH (05:50)
[2020-06-21] MEDS: metFORMIN 500 MG TAB PO SCH (08:00)
[2020-06-21 08:08] LABS: BASOPHILS # (AUTO) 0.1 K/uL (0.00-0.22); BASOPHILS % (AUTO) 0.5 % (0.0-2.0); EOSINOPHILS # (AUTO) 0.8 K/uL (0-0.4); EOSINOPHILS % (AUTO) 5.4 % (0.0-4.0); HEMATOCRIT 35.8 % (36-48); HEMOGLOBIN 11.8 g/dL (12.0-16.0); LYMPHOCYTES # (AUTO) 3.6 K/uL (2.5-16.5); LYMPHOCYTES % (AUTO) 24.3 % (20.5-51.1); MEAN CORPUSCULAR HEMOGLOBIN 26 pg (27-31); MEAN CORPUSCULAR HGB CONC 33 g/dL (33-37); MEAN CORPUSCULAR VOLUME 79.8 fL (80-94); MONOCYTES # (AUTO) 0.9 K/uL (0.8-1.0); MONOCYTES % (AUTO) 5.8 % (1.7-9.3); NEUTROPHILS # (AUTO) 9.5 K/uL (1.8-7.7); PLATELET COUNT (AUTO) 274 K/uL (140-450); RED BLOOD CELL COUNT(AUTO) 4.48 MIL/uL (4.20-5.40); RED CELL DISTRIBUTION WIDTH 14.1 % (11.6-13.7); WHITE BLOOD COUNT (AUTO) 14.9 K/uL (4.8-10.8)
[2020-06-21 08:11] LABS: ANION GAP 14.7 (8-16); CREATININE 0.8 mg/dL (0.6-1.3); POTASSIUM 4.7 mmol/L (3.5-5.1)
[2020-06-21] MEDS: MULTIVIT/MIN/CA/FE/FA 1 TAB PO SCH (08:56)
--- NOTE | 2020-06-21 08:56 | NUR ---
SCHEDULED MORNING MEDICATION GIVEN. METFORMIN REFUSED, NO DIABETES, PER PATIENT. MILD PAIN AT LEFT BREAST, NO PAIN MED NEED AT THIS TIME. INFORMED PATIENT DO NOT TO WAIT THE PAIN LEVEL GET TOO HIGH TO ASK FOR THE PAIN MED. PATIENT VERBALIZED UNDERSTAND. SAFETY MEASURES IN PLACE, WILL CONTINUE TO MONITOR.
[2020-06-21] MEDS ORDERED: METF500T PO (10:28)
[2020-06-21] MEDS ORDERED: SYN.05 PO (10:28)
[2020-06-21] MEDS ORDERED: CIPR500T9 PO (10:28)
[2020-06-21] MEDS ORDERED: PRETAB PO (10:28)
[2020-06-21] MEDS: HYDROmorphone 1 MG/ML AMP IVP PRN (10:57)
--- NOTE | 2020-06-21 10:57 | NUR ---
DILAUDID GIVEN IVP PRIOR WOUND CARE, PER PATIENT' S REQUESTS. INFORMED PATIENT THAT SHE IS GOING HOME TODAY.
--- NOTE | 2020-06-21 11:40 | NUR ---
WOUND CARE PERFORMED. PATIENT TOLERATED WELL.
[2020-06-21] MEDS ORDERED: PIPERACILLIN/TAZOBACTAM 2.25 GM in DEXTROSE 5% 50 ML IV SCH (13:00)
[2020-06-21] MEDS ORDERED: PIPERACILLIN/TAZOBACTAM 3.375 GM in DEXTROSE 5% 50 ML IV SCH (13:00)
== END 2020-06-21 12:41 | disposition home or self-care (01) | DRG 855 ==
LOC: MED 11:58 → MMU 14:46 → MTU 16:18
PROVIDERS: ADMIT Preventive Medicine Preventive Medicine/Occupational Environmental Medicine; ATTEND Preventive Medicine Preventive Medicine/Occupational Environmental Medicine
PROC: 0H9U0ZZ Drainage of Left Breast, Open Approach (ICD-10-PCS; principal; 2020-06-17)
DX: A41.9 Sepsis, unspecified organism (principal); E03.9 Hypothyroidism, unspecified; E28.2 Polycystic ovarian syndrome; N63.20 Unspecified lump in the left breast, unspecified quadrant; N61.1 Abscess of the breast and nipple; D64.9 Anemia, unspecified; Z20.828 Contact with and (suspected) exposure to other viral communicable diseases; E66.01 Morbid (severe) obesity due to excess calories; Z68.34 Body mass index [BMI] 34.0-34.9, adult; E11.65 Type 2 diabetes mellitus with hyperglycemia; B96.5 Pseudomonas (aeruginosa) (mallei) (pseudomallei) as the cause of diseases classified elsewhere
CPT/HCPCS: 36415; 76641; 80048; 80053; 81025; 82948; 85025; 85651; 86140; 87040; 87070; 87075; 87081; 87205; 93005; 96361; 96365; 96375; 99285; J1100; J1170; J1200; J1885; J2001; J2175; J2250; J2270; J2405; J2543; J2704; J3010; J3490; J7030; J7060

== ENCOUNTER 2021-08-29 08:05 | Outpatient (CLI) | payer OTHER, SELFPAY ==
[~2021-08-29 08:05] MED LIST: CIPR500T9 PO; METF500T PO; PRETAB PO; SYN.05 PO
[2021-08-29 08:43] LABS: BASOPHILS # (AUTO) 0.1 K/uL (0.00-0.22); BASOPHILS % (AUTO) 0.7 % (0.0-2.0); EOSINOPHILS # (AUTO) 0.4 K/uL (0-0.4); EOSINOPHILS % (AUTO) 4.4 % (0.0-4.0); HEMATOCRIT 42.3 % (36-48); HEMOGLOBIN 14.3 g/dL (12.0-16.0); LYMPHOCYTES # (AUTO) 3.3 K/uL (2.5-16.5); MEAN CORPUSCULAR HEMOGLOBIN 27 pg (27-31); MEAN CORPUSCULAR HGB CONC 34 g/dL (33-37); MEAN CORPUSCULAR VOLUME 79.9 fL (80-94); MONOCYTES # (AUTO) 0.7 K/uL (0.8-1.0); NEUTROPHILS # (AUTO) 5.5 K/uL (1.8-7.7); NEUTROPHILS % (AUTO) 54.9 % (42.2-75.2); PLATELET COUNT (AUTO) 323 K/uL (140-450); RED CELL DISTRIBUTION WIDTH 13.8 % (11.6-13.7)
[2021-08-29 09:29] LABS: ALBUMIN 3.8 g/dL (3.4-5.0); ANION GAP 11.7 (8-16); CARBON DIOXIDE 29.3 mmol/L (21-32); CHOL/HDL RATIO 5.4 (1-4.5); CREATININE 0.7 mg/dL (0.6-1.3); THYROID STIMULATING HORMONE 2.03 uIU/mL (0.34-3.74); TOTAL BILIRUBIN 0.4 mg/dL (0.0-1.0)
[2021-08-29 09:39] LABS: APPEARANCE,URINE CLEAR (CLEAR); BILIRUBIN,URINE NEGATIVE (NEGATIVE); BLOOD, URINE NEGATIVE (NEGATIVE); COLOR,URINE YELLOW (YELLOW); LEUKOCYTE ESTERASE ,URINE NEGATIVE (NEGATIVE); NITRITE, URINE NEGATIVE (NEGATIVE); UGLUCOSE NEGATIVE (NEGATIVE)
[2021-08-31 06:07] LABS: T4 FREE (DIRECT) 1.39 ng/dL (0.82-1.77)
== END 2021-08-29 20:38 | disposition home or self-care (01) ==
LOC: MLB 08:05
PROVIDERS: ATTEND Preventive Medicine Preventive Medicine/Occupational Environmental Medicine
DX: Z00.00 Encounter for general adult medical examination without abnormal findings (principal); Z11.59 Encounter for screening for other viral diseases; Z13.6 Encounter for screening for cardiovascular disorders
CPT/HCPCS: 36415; 80053; 81003; 82306; 83036; 84439; 84443; 85025; 86702; 86803